=== PATIENT | male | born 1950 | race Caucasian/White ===

== ENCOUNTER → 2018-07-03 18:57 | Outpatient (REF) | payer MEDICARE, SELFPAY ==
[2018-07-03 19:31] LABS: BUN Creatinine Ratio 26.3 (6-22); Blood Urea Nitrogen 21 mg/dL (9-20); Calcium 9.2 mg/dL (8.4-10.2); Carbon Dioxide 26 mmol/L (22-32); Chloride 101 mmol/L (98-107); Estimated Glomerular Filt Rate > 60.0 mL/min (>60); Glucose 108 mg/dL (80-110); HEMOLYSIS < 15 (0-50); Potassium 4.7 mmol/L (3.4-5.1); Sodium 138 mmol/L (137-145)
[2018-07-03 20:07] LABS: Prostate Specific Antigen < 0.064 ng/mL (0.10-4.00)
== END ==
LOC: LAB 18:57
PROVIDERS: Family Provider Family Medicine Geriatric Medicine; PCP Family Medicine Geriatric Medicine; Visit Provider Family Medicine Geriatric Medicine
DX: C61 Malignant neoplasm of prostate (principal); I10 Essential (primary) hypertension
CPT/HCPCS: 36415; 80048; 84153

== ENCOUNTER → 2024-10-21 10:30 | Outpatient (CLI) | payer MEDICARE, OTHER, SELFPAY | PROVIDERS: Family Provider Family Medicine Geriatric Medicine; PCP Family Medicine Geriatric Medicine; Referring Provider Urology; Visit Provider Surgery | DX: N30.41 Irradiation cystitis with hematuria (principal); R33.8 Other retention of urine; I10 Essential (primary) hypertension; Z85.46 Personal history of malignant neoplasm of prostate | CPT/HCPCS: 99203; 99212 ==

== ENCOUNTER → 2024-10-21 11:08 | Outpatient (CLI) | payer MEDICARE, OTHER, SELFPAY ==
--- NOTE | 2024-10-21 11:11 | DI.RAD.S_ITS ---
PROCEDURE: XR CHEST 2V INDICATIONS: Eval for HBO treatment TECHNIQUE: 2 views of the chest were acquired. COMPARISON: None. FINDINGS: Surgical changes and devices: None. Lungs and pleura: Lungs are clear. No pleural effusions or pneumothorax. Mediastinum: Mediastinal contours are normal. Heart size is normal. Bones and chest wall: No suspicious bony abnormalities. Soft tissues appear unremarkable. IMPRESSION: No acute cardiopulmonary abnormality is seen. Approved by: Olu Sargent M.D. on 10/21/2024 at 16:50
== END ==
PROVIDERS: Family Provider Family Medicine Geriatric Medicine; PCP Family Medicine; Referring Provider Family Medicine; Visit Provider Surgery
DX: Z01.810 Encounter for preprocedural cardiovascular examination (principal); N30.40 Irradiation cystitis without hematuria
CPT/HCPCS: 71046

== ENCOUNTER → 2024-11-23 08:23 | Outpatient (CLI) | payer MEDICARE, OTHER, SELFPAY | LOC: WC 08:28 | PROVIDERS: Family Provider Family Medicine Geriatric Medicine; PCP Family Medicine; Referring Provider Family Medicine; Visit Provider Surgery | DX: N30.40 Irradiation cystitis without hematuria (principal); Z85.46 Personal history of malignant neoplasm of prostate; Z90.79 Acquired absence of other genital organ(s); I10 Essential (primary) hypertension | CPT/HCPCS: 99183; 99212; 99213; G0277 ==

== ENCOUNTER → 2024-11-24 11:52 | Outpatient (CLI) | payer MEDICARE, OTHER, SELFPAY | LOC: WC 11:57 | PROVIDERS: Family Provider Family Medicine Geriatric Medicine; PCP Family Medicine; Referring Provider Family Medicine; Visit Provider Surgery | DX: N30.41 Irradiation cystitis with hematuria (principal) | CPT/HCPCS: 99183; G0277 ==

== ENCOUNTER → 2024-11-25 12:18 | Outpatient (CLI) | payer MEDICARE, OTHER, SELFPAY | PROVIDERS: Family Provider Family Medicine Geriatric Medicine; PCP Family Medicine; Referring Provider Family Medicine; Visit Provider Surgery | DX: N30.41 Irradiation cystitis with hematuria (principal) | CPT/HCPCS: 99183; G0277 ==

== ENCOUNTER → 2024-11-26 10:52 | Outpatient (CLI) | payer MEDICARE, OTHER, SELFPAY | PROVIDERS: Family Provider Family Medicine Geriatric Medicine; PCP Family Medicine; Referring Provider Family Medicine; Visit Provider Surgery | DX: N30.41 Irradiation cystitis with hematuria (principal) | CPT/HCPCS: 99183; G0277 ==

== ENCOUNTER → 2024-12-01 08:47 | Outpatient (CLI) | payer MEDICARE, OTHER, SELFPAY | LOC: WC 08:53 | PROVIDERS: Family Provider Family Medicine Geriatric Medicine; PCP Family Medicine; Referring Provider Family Medicine; Visit Provider Physician Assistant | DX: N30.41 Irradiation cystitis with hematuria (principal) | CPT/HCPCS: 99183; G0277 ==

== ENCOUNTER → 2024-12-02 08:56 | Outpatient (CLI) | payer MEDICARE, OTHER, SELFPAY | LOC: WC 08:57 | PROVIDERS: Family Provider Family Medicine Geriatric Medicine; PCP Family Medicine; Referring Provider Family Medicine; Visit Provider Physician Assistant | DX: N30.41 Irradiation cystitis with hematuria (principal) | CPT/HCPCS: 99183; G0277 ==

== ENCOUNTER → 2024-12-03 10:21 | Outpatient (CLI) | payer MEDICARE, OTHER, SELFPAY | LOC: WC 10:22 | PROVIDERS: Family Provider Family Medicine Geriatric Medicine; PCP Family Medicine; Referring Provider Family Medicine; Visit Provider Physician Assistant | DX: N30.41 Irradiation cystitis with hematuria (principal) | CPT/HCPCS: 99183; G0277 ==

== ENCOUNTER → 2024-12-06 10:48 | Outpatient (CLI) | payer MEDICARE, OTHER, SELFPAY | LOC: WC 10:49 | PROVIDERS: Family Provider Family Medicine Geriatric Medicine; PCP Family Medicine; Referring Provider Family Medicine; Visit Provider Surgery | DX: N30.41 Irradiation cystitis with hematuria (principal) | CPT/HCPCS: 99183; G0277 ==

== ENCOUNTER → 2024-12-07 09:11 | Outpatient (CLI) | payer MEDICARE, OTHER, SELFPAY | LOC: WC 09:12 | PROVIDERS: Family Provider Family Medicine Geriatric Medicine; PCP Family Medicine; Referring Provider Family Medicine; Visit Provider Surgery | DX: N30.41 Irradiation cystitis with hematuria (principal) | CPT/HCPCS: 99183; G0277 ==

== ENCOUNTER → 2024-12-08 10:32 | Outpatient (CLI) | payer MEDICARE, OTHER, SELFPAY | LOC: WC 10:34 | PROVIDERS: Family Provider Family Medicine Geriatric Medicine; PCP Family Medicine; Referring Provider Family Medicine; Visit Provider Surgery | DX: N30.41 Irradiation cystitis with hematuria (principal) | CPT/HCPCS: 99183; G0277 ==

== ENCOUNTER → 2024-12-09 16:38 | Outpatient (CLI) | payer MEDICARE, OTHER, SELFPAY | LOC: WC 16:38 | PROVIDERS: Family Provider Family Medicine Geriatric Medicine; PCP Family Medicine; Referring Provider Family Medicine; Visit Provider Surgery | DX: N30.41 Irradiation cystitis with hematuria (principal) | CPT/HCPCS: 99183; G0277 ==

== ENCOUNTER → 2024-12-10 08:46 | Outpatient (CLI) | payer MEDICARE, OTHER, SELFPAY | LOC: WC 08:47 | PROVIDERS: Family Provider Family Medicine Geriatric Medicine; PCP Family Medicine; Referring Provider Family Medicine; Visit Provider Surgery | DX: N30.41 Irradiation cystitis with hematuria (principal) | CPT/HCPCS: 99183; G0277 ==

== ENCOUNTER → 2024-12-13 09:17 | Outpatient (CLI) | payer MEDICARE, OTHER, SELFPAY | LOC: WC 09:18 | PROVIDERS: Family Provider Family Medicine Geriatric Medicine; PCP Family Medicine; Referring Provider Family Medicine; Visit Provider Surgery | DX: N30.41 Irradiation cystitis with hematuria (principal) | CPT/HCPCS: 99183; G0277 ==

== ENCOUNTER → 2024-12-14 09:03 | Outpatient (CLI) | payer MEDICARE, OTHER, SELFPAY | LOC: WC 09:06 | PROVIDERS: Family Provider Family Medicine Geriatric Medicine; PCP Family Medicine; Referring Provider Family Medicine; Visit Provider Surgery | DX: N30.41 Irradiation cystitis with hematuria (principal) | CPT/HCPCS: 99183; G0277 ==

== ENCOUNTER → 2024-12-15 10:20 | Outpatient (CLI) | payer MEDICARE, OTHER, SELFPAY | LOC: WC 10:20 | PROVIDERS: Family Provider Family Medicine Geriatric Medicine; PCP Family Medicine; Referring Provider Family Medicine; Visit Provider Surgery | DX: N30.41 Irradiation cystitis with hematuria (principal) | CPT/HCPCS: 99183; G0277 ==

== ENCOUNTER → 2024-12-16 10:27 | Outpatient (CLI) | payer MEDICARE, OTHER, SELFPAY | LOC: WC 10:28 | PROVIDERS: Family Provider Family Medicine Geriatric Medicine; PCP Family Medicine; Referring Provider Family Medicine; Visit Provider Surgery | DX: N30.41 Irradiation cystitis with hematuria (principal) | CPT/HCPCS: 99183; G0277 ==

== ENCOUNTER → 2024-12-17 08:40 | Outpatient (CLI) | payer MEDICARE, OTHER, SELFPAY | LOC: WC 08:42 | PROVIDERS: Family Provider Family Medicine Geriatric Medicine; PCP Family Medicine; Referring Provider Family Medicine; Visit Provider Physician Assistant | DX: N30.41 Irradiation cystitis with hematuria (principal) | CPT/HCPCS: 99183; G0277 ==

== ENCOUNTER → 2024-12-20 08:48 | Outpatient (CLI) | payer MEDICARE, OTHER, SELFPAY | LOC: WC 08:49 | PROVIDERS: Family Provider Family Medicine Geriatric Medicine; PCP Family Medicine; Referring Provider Family Medicine; Visit Provider Surgery | DX: N30.41 Irradiation cystitis with hematuria (principal) | CPT/HCPCS: 99183; G0277 ==

== ENCOUNTER → 2024-12-21 09:00 | Outpatient (CLI) | payer MEDICARE, OTHER, SELFPAY | LOC: WC 09:02 | PROVIDERS: Family Provider Family Medicine Geriatric Medicine; PCP Family Medicine; Referring Provider Family Medicine; Visit Provider Surgery | DX: N30.41 Irradiation cystitis with hematuria (principal) | CPT/HCPCS: 99183; G0277 ==

== ENCOUNTER → 2024-12-22 12:09 | Outpatient (CLI) | payer MEDICARE, OTHER, SELFPAY | LOC: WC 12:09 | PROVIDERS: Family Provider Family Medicine Geriatric Medicine; PCP Family Medicine; Referring Provider Family Medicine; Visit Provider Surgery | DX: N30.41 Irradiation cystitis with hematuria (principal); Z85.46 Personal history of malignant neoplasm of prostate | CPT/HCPCS: 99183; 99212; 99213; G0277 ==

== ENCOUNTER → 2024-12-27 16:08 | Outpatient (CLI) | payer MEDICARE, OTHER, SELFPAY | LOC: WC 16:08 | PROVIDERS: Family Provider Family Medicine Geriatric Medicine; PCP Family Medicine; Referring Provider Family Medicine; Visit Provider Surgery | DX: N30.41 Irradiation cystitis with hematuria (principal) | CPT/HCPCS: 99183; G0277 ==

== ENCOUNTER → 2024-12-28 09:31 | Outpatient (CLI) | payer MEDICARE, OTHER, SELFPAY | LOC: WC 09:32 | PROVIDERS: Family Provider Family Medicine Geriatric Medicine; PCP Family Medicine; Referring Provider Family Medicine; Visit Provider Surgery | DX: N30.41 Irradiation cystitis with hematuria (principal) | CPT/HCPCS: 99183; G0277 ==

== ENCOUNTER → 2024-12-29 11:25 | Outpatient (CLI) | payer MEDICARE, OTHER, SELFPAY | LOC: WC 11:26 | PROVIDERS: Family Provider Family Medicine Geriatric Medicine; PCP Family Medicine; Referring Provider Family Medicine; Visit Provider Surgery | DX: N30.41 Irradiation cystitis with hematuria (principal) | CPT/HCPCS: 99183; G0277 ==

== ENCOUNTER → 2024-12-30 11:00 | Outpatient (CLI) | payer MEDICARE, OTHER, SELFPAY | LOC: WC 11:01 | PROVIDERS: Family Provider Family Medicine Geriatric Medicine; PCP Family Medicine; Referring Provider Family Medicine; Visit Provider Surgery | DX: N30.41 Irradiation cystitis with hematuria (principal) | CPT/HCPCS: 99183; G0277 ==

== ENCOUNTER → 2024-12-31 09:22 | Outpatient (CLI) | payer MEDICARE, OTHER, SELFPAY | LOC: WC 09:24 | PROVIDERS: Family Provider Family Medicine Geriatric Medicine; PCP Family Medicine; Referring Provider Family Medicine; Visit Provider Physician Assistant | DX: N30.41 Irradiation cystitis with hematuria (principal) | CPT/HCPCS: 99183; G0277 ==

== ENCOUNTER → 2025-01-03 15:54 | Outpatient (CLI) | payer MEDICARE, OTHER, SELFPAY | LOC: WC 15:55 | PROVIDERS: Family Provider Family Medicine Geriatric Medicine; PCP Family Medicine; Referring Provider Family Medicine; Visit Provider Surgery | DX: N30.41 Irradiation cystitis with hematuria (principal) | CPT/HCPCS: 99183; G0277 ==

== ENCOUNTER → 2025-01-04 11:39 | Outpatient (CLI) | payer MEDICARE, OTHER, SELFPAY | LOC: WC 11:49 | PROVIDERS: Family Provider Family Medicine Geriatric Medicine; PCP Family Medicine; Referring Provider Family Medicine; Visit Provider Surgery | DX: N30.41 Irradiation cystitis with hematuria (principal) | CPT/HCPCS: 99183; G0277 ==

== ENCOUNTER → 2025-01-05 09:27 | Outpatient (CLI) | payer MEDICARE, OTHER, SELFPAY | LOC: WC 09:27 | PROVIDERS: Family Provider Family Medicine Geriatric Medicine; PCP Family Medicine; Referring Provider Family Medicine; Visit Provider Surgery | DX: N30.41 Irradiation cystitis with hematuria (principal) | CPT/HCPCS: 99183; G0277 ==

== ENCOUNTER → 2025-01-06 08:16 | Outpatient (CLI) | payer MEDICARE, OTHER, SELFPAY | LOC: WC 08:17 | PROVIDERS: Family Provider Family Medicine Geriatric Medicine; PCP Family Medicine; Referring Provider Family Medicine; Visit Provider Surgery | DX: N30.41 Irradiation cystitis with hematuria (principal) | CPT/HCPCS: 99183; G0277 ==

== ENCOUNTER → 2025-01-07 08:56 | Outpatient (CLI) | payer MEDICARE, OTHER, SELFPAY | LOC: WC 08:58 | PROVIDERS: Family Provider Family Medicine Geriatric Medicine; PCP Family Medicine; Referring Provider Family Medicine; Visit Provider Physician Assistant | DX: N30.41 Irradiation cystitis with hematuria (principal) | CPT/HCPCS: 99183; G0277 ==

== ENCOUNTER → 2025-01-10 09:31 | Outpatient (CLI) | payer MEDICARE, OTHER, SELFPAY | LOC: WC 09:38 | PROVIDERS: Family Provider Family Medicine Geriatric Medicine; PCP Family Medicine; Referring Provider Family Medicine; Visit Provider Surgery | DX: N30.41 Irradiation cystitis with hematuria (principal) | CPT/HCPCS: 99183; G0277 ==

== ENCOUNTER → 2025-01-11 12:30 | Outpatient (CLI) | payer MEDICARE, OTHER, SELFPAY | LOC: WC 01-12 10:25 | PROVIDERS: Family Provider Family Medicine Geriatric Medicine; PCP Family Medicine; Referring Provider Family Medicine; Visit Provider Surgery | DX: N30.41 Irradiation cystitis with hematuria (principal) | CPT/HCPCS: 99183; G0277 ==

== ENCOUNTER → 2025-01-12 10:26 | Outpatient (CLI) | payer MEDICARE, OTHER, SELFPAY | LOC: WC 10:27 | PROVIDERS: Family Provider Family Medicine Geriatric Medicine; PCP Family Medicine; Referring Provider Family Medicine; Visit Provider Surgery | DX: N30.41 Irradiation cystitis with hematuria (principal) | CPT/HCPCS: 99183; G0277 ==

== ENCOUNTER → 2025-01-13 12:04 | Outpatient (CLI) | payer MEDICARE, OTHER, SELFPAY | LOC: WC 12:05 | PROVIDERS: Family Provider Family Medicine Geriatric Medicine; PCP Family Medicine; Referring Provider Family Medicine; Visit Provider Physician Assistant | DX: N30.41 Irradiation cystitis with hematuria (principal) | CPT/HCPCS: 99183; G0277 ==

== ENCOUNTER → 2025-01-17 14:23 | Outpatient (CLI) | payer MEDICARE, OTHER, SELFPAY | LOC: WC 14:34 | PROVIDERS: Family Provider Family Medicine Geriatric Medicine; PCP Family Medicine; Referring Provider Family Medicine; Visit Provider Surgery | DX: N30.41 Irradiation cystitis with hematuria (principal) | CPT/HCPCS: 99183; G0277 ==

== ENCOUNTER → 2025-01-18 14:50 | Outpatient (CLI) | payer MEDICARE, OTHER, SELFPAY | LOC: WC 14:51 | PROVIDERS: Family Provider Family Medicine Geriatric Medicine; PCP Family Medicine; Referring Provider Family Medicine; Visit Provider Surgery | DX: N30.41 Irradiation cystitis with hematuria (principal) | CPT/HCPCS: 99183; G0277 ==

== ENCOUNTER → 2025-01-19 16:24 | Outpatient (CLI) | payer MEDICARE, OTHER, SELFPAY | LOC: WC 16:25 | PROVIDERS: Family Provider Family Medicine Geriatric Medicine; PCP Family Medicine; Referring Provider Family Medicine; Visit Provider Surgery | DX: N30.41 Irradiation cystitis with hematuria (principal) | CPT/HCPCS: 99183; G0277 ==

== ENCOUNTER → 2025-01-20 10:57 | Outpatient (CLI) | payer MEDICARE, OTHER, SELFPAY | LOC: WC 10:58 | PROVIDERS: Family Provider Family Medicine Geriatric Medicine; PCP Family Medicine; Referring Provider Family Medicine; Visit Provider Surgery | DX: N30.41 Irradiation cystitis with hematuria (principal) | CPT/HCPCS: 99183; G0277 ==

== ENCOUNTER → 2025-01-21 13:11 | Outpatient (CLI) | payer MEDICARE, OTHER, SELFPAY | LOC: WC 13:16 | PROVIDERS: Family Provider Family Medicine Geriatric Medicine; PCP Family Medicine; Referring Provider Family Medicine; Visit Provider Nurse Practitioner Family | DX: N30.41 Irradiation cystitis with hematuria (principal) | CPT/HCPCS: 99183; G0277 ==

== ENCOUNTER → 2025-01-25 13:26 | Outpatient (CLI) | payer MEDICARE, OTHER, SELFPAY | LOC: WC 13:28 | PROVIDERS: Family Provider Family Medicine Geriatric Medicine; PCP Family Medicine; Referring Provider Family Medicine; Visit Provider Surgery | DX: N30.41 Irradiation cystitis with hematuria (principal) | CPT/HCPCS: 99183; G0277 ==

== ENCOUNTER → 2025-01-26 09:31 | Outpatient (CLI) | payer MEDICARE, OTHER, SELFPAY | LOC: WC 09:36 | PROVIDERS: Family Provider Family Medicine Geriatric Medicine; PCP Family Medicine; Referring Provider Family Medicine; Visit Provider Surgery | DX: N30.41 Irradiation cystitis with hematuria (principal) | CPT/HCPCS: 99183; G0277 ==

== ENCOUNTER → 2025-01-27 09:10 | Outpatient (CLI) | payer MEDICARE, OTHER, SELFPAY | LOC: WC 09:12 | PROVIDERS: Family Provider Family Medicine Geriatric Medicine; PCP Family Medicine; Referring Provider Family Medicine; Visit Provider Surgery | DX: N30.41 Irradiation cystitis with hematuria (principal) | CPT/HCPCS: 99183; G0277 ==

== ENCOUNTER → 2025-01-28 10:25 | Outpatient (CLI) | payer MEDICARE, OTHER, SELFPAY | LOC: WC 10:29 | PROVIDERS: Family Provider Family Medicine Geriatric Medicine; PCP Family Medicine; Referring Provider Family Medicine; Visit Provider Physician Assistant | DX: N30.41 Irradiation cystitis with hematuria (principal) | CPT/HCPCS: 99183; G0277 ==

== ENCOUNTER → 2025-01-31 12:30 | Outpatient (CLI) | payer MEDICARE, OTHER, SELFPAY | LOC: WC 12:31 | PROVIDERS: Family Provider Family Medicine Geriatric Medicine; PCP Family Medicine; Referring Provider Family Medicine; Visit Provider Surgery | DX: N30.41 Irradiation cystitis with hematuria (principal) | CPT/HCPCS: 99183; G0277 ==